=== PATIENT | male | born 1970 | race Caucasian/White ===

== ENCOUNTER 2017-09-19 12:03 | Day surgery (SDC) | payer OTHER ==
[2017-09-19] MEDS ORDERED: PROPOFOL 20 ML (14:19)
[2017-09-19] MEDS: ALBUTEROL/IPRATROPIUM (NEB) 3 ML AMP HHN (14:55)
== END 2017-09-19 16:23 | disposition home or self-care (01) ==
LOC: GIL 12:03
DX: K44.9 Diaphragmatic hernia without obstruction or gangrene (principal); K21.9 Gastro-esophageal reflux disease without esophagitis
CPT/HCPCS: 43239; 88305; 88312; 94664